=== PATIENT | male | born 1960 | race Caucasian/White ===

== ENCOUNTER 2019-12-25 08:41 | Inpatient (IN) | payer BC, OTHER ==
[2019-12-25 09:18] LABS: Protime INR 1.18
[2019-12-25 09:21] LABS: Absolute Lymphocytes (CBC) 0.7 K/uL (0.7-4.9); Basophils % 0.6 % (0-1.3); Hematocrit 50.1 % (39.6-49.0); Lymphocytes % 9.5 % (15.3-44.8); MPV 8.7 fL (7.6-11.3); RBC Red Blood Cell Count 5.16 M/uL (4.33-5.43)
[2019-12-25] MEDS ORDERED: METOPROLOL TAR 50 MG TAB ONE (09:24)
[2019-12-25] MEDS ORDERED: ENOXAPARIN 100 MG/ML SYR SQ ONE (09:24)
[2019-12-25] MEDS ORDERED: METOPROLOL TARTRATE 5 MG/5 ML INJ IV ONE ×2 (09:24→10:49)
[2019-12-25] MEDS ORDERED: ASPIRIN 81 MG CHEWABLE TABLET ONE (09:24)
[2019-12-25] MEDS ORDERED: FAMOTIDINE 20 MG/2 ML VIAL IV ONE (09:25)
[2019-12-25] MEDS ORDERED: NA CHLORIDE 0.9% 1,000 ML ONE (09:25)
[2019-12-25 09:39] LABS: Albumin 3.7 g/dL (3.4-5.0); Bilirubin Direct 0.3 mg/dL (0-0.2); Bilirubin Total 0.8 mg/dL (0.2-1.0); Potassium 4.2 mmol/L (3.5-5.1); Protein, Total 7.9 g/dL (6.4-8.2); Thyroid Stimulating Hormone 3.4 uIU/mL (0.360-3.740); Troponin (Emerg Dept Use Only) 0.02 ng/mL (0.0-0.045)
--- NOTE | 2019-12-25 09:50 | RAD REPORT ---
EXAM DESCRIPTION: RAD - Chest Single View - 12/25/2019 9:36 am CLINICAL HISTORY: CHEST PAIN Chest pain. COMPARISON: No comparisons FINDINGS: Portable technique limits examination quality. Mild interstitial pulmonary edema suspected. The heart is moderately enlarged in size. No displaced f ractures. IMPRESSION: Mild CHF.
--- NOTE | 2019-12-25 10:15 | ER ---
Nurse's Notes [facility] Name: Forest Krishnan Age: 59 yrs Sex: Male : 1960 Arrival Date: 12/25/2019 Time: 08:47 Bed 19 Private MD: Diagnosis: Morbid (severe) obesity due to excess calories;Atrial fibrillation and flutter-W/ RVR, NEW ONSET;Chest pain, unspecified;Essential (primary) hypertension;Diastolic (congestive) heart failure Presentation: 12/24 09:04 Chief complaint: Patient states: SOB that began 3 weeks ago. Pt reports that he called ss Dr. Paz who recommended a COVID test which he had obtained 1 week ago which was negative. Coronavirus screen: Client denies travel out of the [place] in the last 14 days. shortness of breath. Ebola Screen: Patient denies exposure to infectious person. Patient denies travel to an Ebola-affected area in the 21 days before illness onset. Initial Sepsis Screen: Does the patient meet any 2 criteria? RR > 20 per min. HR > 90 bpm. Does the patient have a suspected source of infection? No. Patient's initial sepsis screen is negative. Risk Assessment: Do you want to hurt yourself or someone else? Patient reports no desire to harm self or others. Onset of symptoms was November 2019. 09:04 Method Of Arrival: Ambulatory 09:04 Acuity: MIYA 2 ss 09:06 Coronavirus screen: Client denies travel out of the [place] in the last 14 days. At this ph time, the client does not indicate any symptoms associated with coronavirus-19. The client reports previous COVID testing was negative. Ebola Screen: No symptoms or risks identified at this time. Initial Sepsis Screen: Does the patient meet any 2 criteria? No. Patient's initial sepsis screen is negative. Does the patient have a suspected source of infection? No. Patient's initial sepsis screen is negative. Risk Assessment: Do you want to hurt yourself or someone else? Patient reports no desire to harm self or others. Onset of symptoms was December 25, 2019. 09:06 Acuity: MIYA 2 ph 09:06 Method Of Arrival: Ambulatory Historical: - Allergies: 09:07 No Known Allergies; ph 09:08 No Known Allergies; ss - Home Meds: 09:08 telmisartan 80 mg oral tab 1 tab once daily [Active]; ss - PMHx: 09:07 Hypertension; ph 09:08 Hypertension; ss - PSHx: 09:08 Hernia repair; Appendectomy; ss - Immunization history:: Adult Immunizations unknown, Adult Immunizations up to date. - Social history:: Smoking status: Patient denies any tobacco usage or history of. Screenin:07 Abuse screen: Denies threats or abuse. Denies injuries from another. Nutritional ph screening: No deficits noted. Tuberculosis screening: No symptoms or risk factors identified. Fall Risk None identified. Assessment: 09:30 General: Appears in no apparent distress. comfortable, obese, well groomed, Behavior is ph calm, cooperative, appropriate for age, Denies fever, feeling ill. Pain: Complains of pain in anterior aspect of left upper chest and mid-sternal area Pain does not radiate. Pain currently is 2 out of 10 on a pain scale. Quality of pain is described as squeezing, Pain began approx 1 month ago Is intermittent. Neuro: Level of Consciousness is awake, alert, obeys commands, Oriented to person, place, time, situation. Cardiovascular: Reports chest pain, shortness of breath, Denies lightheadedness, nausea, palpitations, vomiting, Capillary refill < 3 seconds in bilateral fingers Patient's skin is warm and dry. Rhythm is atrial fibrillation with rapid ventricular response Chest pain quality is squeezing, is located in left anterior chest wall episodes are intermittent. Respiratory: Reports shortness of breath at rest Airway is patent Respiratory effort is even, unlabored, Respiratory pattern is regular, symmetrical, Denies cough. GI: No signs and/or symptoms were reported involving the gastrointestinal system. Derm: Skin is intact, is healthy with good turgor, Skin is pink, warm \\T\\ dry. Musculoskeletal: Circulation, motion, and sensation intact. Range of motion: intact in all extremities. 10:50 Reassessment: Patient appears in no apparent distress at this time. Patient and/or ph family updated on plan of care and expected duration. Pain level reassessed. Patient is alert, oriented x 3, equal unlabored respirations, skin warm/dry/pink. Dr Brothers at bedside to speak w/ pt, pt noted to be diaphoretic, denies chest pain or SOB at this time, states, " I just got a hot flash." Awaiting orders for admission. 11:30 Reassessment: Patient appears in no apparent distress at this time. Patient and/or ph family updated on plan of care and expected duration. Pain level reassessed. Patient is alert, oriented x 3, equal unlabored respirations, skin warm/dry/pink. Vital Signs: 09:04 Pulse 151; Resp 26; Temp 97.0(TE); Pulse Ox 96% on R/A; Weight 154.22 kg; Height 6 ft. ss 0 in. (182.88 cm); Pain 0/10; 09:06 BP 141 / 117; Pulse 165; Resp 18; Pulse Ox 96% on R/A; ph 09:34 BP 128 / 89; Pulse 136; Resp 18; Pulse Ox 96% on R/A; ph 10:58 BP 120 / 92; Pulse 115; Resp 20; Pulse Ox 95% on R/A; ph 11:37 BP 113 / 95; Pulse 109; Resp 20; Pulse Ox 96% on 2 lpm NC; ph 12:05 BP 112 / 94; Pulse 106; Resp 18; Pulse Ox 98% on 2 lpm NC; ph 09:04 Body Mass Index 46.11 (154.22 kg, 182.88 cm) ss ED Course: 08:47 Patient arrived in ED. mr 08:55 Sydnie Falcon, BERNARD is Primary Nurse. ph 09:01 Christopher Frazier MD is Attending Physician. oly 09:07 Triage completed. ph 09:08 Arm band placed on Patient placed in an exam room, on a stretcher, on cnc machine programmer, ph on pulse oximetry. 09:08 Patient has correct armband on for positive identification. Placed in gown. Bed in low ph position. Call light in reach. Side rails up X 1. computer systems engineer on. Pulse ox on. NIBP on. Door closed. Noise minimized. 09:09 Inserted saline lock: 20 gauge in right antecubital area, using aseptic technique. mt Blood collected. 09:09 EKG done, by ED staff, reviewed by Christopher Frazier MD. mt 09:37 XRAY Chest (1 view) In Process Unspecified. EDMS 10:13 Ahmet Santoyo MD is Hospitalizing Provider. oly 11:38 Oxygen administration via nasal cannula \\T\\ 2L/min. ph 12:00 No provider procedures requiring assistance completed. Patient admitted, IV remains in ph place. Administered Medications: Discontinued: NS 0.9% 1000 ml IV at 1 bolus Per protocol; 1000 mL bolus 09:15 Drug: NS 0.9% 1000 ml Route: IV; Rate: 1 bolus; Site: right antecubital; ph 10:01 Follow up: Response: No adverse reaction; IV Status: Order to discontinue infusion ph 09:15 Drug: Lopressor (metoprolol TARTRATE) 50 mg Route: PO; ph 11:36 Follow up: Response: No adverse reaction ph 09:15 Drug: Aspirin Chewable Tablet 324 mg Route: PO; ph 11:36 Follow up: Response: No adverse reaction ph 09:17 Drug: Pepcid 20 mg Route: IVP; Site: right antecubital; ph 11:36 Follow up: Response: No adverse reaction ph 09:18 Drug: Lovenox 1 mg/kg Route: Sub-Q; Site: left lower abdomen; ph 11:36 Follow up: Response: No adverse reaction ph 09:22 Drug: Lopressor 5 mg Route: IVP; Site: right antecubital; ph 10:00 Drug: Lopressor 5 mg Route: IVP; Site: right antecubital; ph 10:50 Drug: Lasix 40 mg Route: IVP; Site: right antecubital; ph 11:36 Follow up: Response: No adverse reaction ph 10:59 Drug: Magnesium Sulfate 1 grams Route: IVPB; Infused Over: 1 hrs; Site: right ph antecubital; 11:00 Drug: Lopressor 5 mg Route: IVP; Site: right antecubital; ph 11:35 Follow up: Response: No adverse reaction; Cardiac rhythm changed ph 11:35 Drug: Digoxin 0.5 mg Route: IVP; Site: right antecubital; ph 11:37 Follow up: Response: No adverse reaction; Cardiac rhythm changed ph Outcome: 10:14 Decision to Hospitalize by Provider. oly 12:35 Admitted to Tele accompanied by tech, via wheelchair, room 204, with chart, Report ph called to Marj WAGNER 12:35 Condition: improved 12:35 Instructed on the need for admit. 12:36 Patient left the ED. eb Signatures: Dispatcher [employer] EDChristopher Servin MD MD cha Rivera, Jennifer Acosta RN RN Sydnie Falcon RN RN Juan, [place] Juliette Vallejo Corrections: (The following items were deleted from the chart) : 09:04 Coronavirus screen: Client denies travel out of the [place] in the last 14 days. ss ss
--- NOTE | 2019-12-25 10:15 | EDPHYS ---
Physician Documentation [facility] Name: Forest Krishnan Age: 59 yrs Sex: Male : 1960 Arrival Date: 12/25/2019 Time: 08:47 Bed 19 Private MD: ED Physician Christopher Frazier HPI: 12/24 10:04 This 59 yrs old Male presents to ER via Ambulatory with complaints of Chest oly Pain, Breathing Difficulty. 10:04 The patient or guardian reports chest pain that is located primarily in the substernal oly area. Onset: 2 day(s) ago. The pain does not radiate. Associated signs and symptoms: Pertinent positives: shortness of breath. Historical: - Allergies: 09:07 No Known Allergies; ph 09:08 No Known Allergies; ss - Home Meds: 09:08 telmisartan 80 mg oral tab 1 tab once daily [Active]; ss - PMHx: 09:07 Hypertension; ph 09:08 Hypertension; ss - PSHx: 09:08 Hernia repair; Appendectomy; ss - Immunization history:: Adult Immunizations unknown, Adult Immunizations up to date. - Social history:: Smoking status: Patient denies any tobacco usage or history of. ROS: 10:07 Constitutional: Negative for fever, chills, and weight loss, Eyes: Negative for injury, oly pain, redness, and discharge, ENT: Negative for injury, pain, and discharge, Neck: Negative for injury, pain, and swelling, Abdomen/GI: Negative for abdominal pain, nausea, vomiting, diarrhea, and constipation, Back: Negative for injury and pain, : Negative for injury, bleeding, discharge, and swelling, Skin: Negative for injury, rash, and discoloration, Neuro: Negative for headache, weakness, numbness, tingling, and seizure, Psych: Negative for depression, anxiety, suicide ideation, homicidal ideation, and hallucinations, Allergy/Immunology: Negative for hives, rash, and allergies, Endocrine: Negative for neck swelling, polydipsia, polyuria, polyphagia, and marked weight changes, Hematologic/Lymphatic: Negative for swollen nodes, abnormal bleeding, and unusual bruising. 10:07 Cardiovascular: Positive for chest pain, edema, orthopnea, palpitations. 10:07 Cardiovascular: Positive for 10:07 Respiratory: Positive for shortness of breath. 10:07 MS/extremity: Positive for swelling, of the right leg and left leg. Exam: 10:08 Constitutional: This is a well developed, well nourished patient who is awake, alert, oly and in no acute distress. Head/Face: Normocephalic, atraumatic. Eyes: Pupils equal round and reactive to light, extra-ocular motions intact. Lids and lashes normal. Conjunctiva and sclera are non-icteric and not injected. Cornea within normal limits. Periorbital areas with no swelling, redness, or edema. ENT: Nares patent. No nasal discharge, no septal abnormalities noted. Tympanic membranes are normal and external auditory canals are clear. Oropharynx with no redness, swelling, or masses, exudates, or evidence of obstruction, uvula midline. Mucous membranes moist. Neck: Trachea midline, no thyromegaly or masses palpated, and no cervical lymphadenopathy. Supple, full range of motion without nuchal rigidity, or vertebral point tenderness. No Meningismus. Chest/axilla: Normal chest wall appearance and motion. Nontender with no deformity. No lesions are appreciated. Respiratory: Lungs have equal breath sounds bilaterally, clear to auscultation and percussion. No rales, rhonchi or wheezes noted. No increased work of breathing, no retractions or nasal flaring. Abdomen/GI: Soft, non-tender, with normal bowel sounds. No distension or tympany. No guarding or rebound. No evidence of tenderness throughout. Back: No spinal tenderness. No costovertebral tenderness. Full range of motion. Male : Normal genitalia with no discharge or lesions. Neuro: Awake and alert, GCS 15, oriented to person, place, time, and situation. Cranial nerves II-XII grossly intact. Motor strength 5/5 in all extremities. Sensory grossly intact. Cerebellar exam normal. Normal gait. Psych: Awake, alert, with orientation to person, place and time. Behavior, mood, and affect are within normal limits. 10:08 Cardiovascular: Rate: tachycardic, Rhythm: irregularly irregular, Pulses: Pulses are 4+ in bilateral radial, brachial, femoral, popliteal, posterior tibial and and dorsalis pedis arteries.. Heart sounds: normal, Edema: 4+ edema to level of left midcalf and right midcalf, JVD: is noted bilaterally, to 2 cm. 10:08 Skin: Appearance: Color: normal in color, Temperature: normal temperature, Moisture: diaphoretic, petechiae, not noted, ecchymosis, not noted, abscess, not appreciated, cellulitis, is not appreciated, induration, is not appreciated, injury, is not appreciated. Vital Signs: 09:04 Pulse 151; Resp 26; Temp 97.0(TE); Pulse Ox 96% on R/A; Weight 154.22 kg; Height 6 ft. ss 0 in. (182.88 cm); Pain 0/10; 09:06 BP 141 / 117; Pulse 165; Resp 18; Pulse Ox 96% on R/A; ph 09:34 BP 128 / 89; Pulse 136; Resp 18; Pulse Ox 96% on R/A; ph 10:58 BP 120 / 92; Pulse 115; Resp 20; Pulse Ox 95% on R/A; ph 11:37 BP 113 / 95; Pulse 109; Resp 20; Pulse Ox 96% on 2 lpm NC; ph 12:05 BP 112 / 94; Pulse 106; Resp 18; Pulse Ox 98% on 2 lpm NC; ph 09:04 Body Mass Index 46.11 (154.22 kg, 182.88 cm) ss MDM: 09:03 Patient medically screened. oly 10:10 Antibiotic administration: Not indicated. Differential diagnosis: Anemia Anxiety oly Reaction CHF exacerbation, acute myocardial infarction, anxiety, congestive heart failure arrythmia, hiatal hernia, pancreatitis, pneumonia, pulmonary edema, Pulmonary Embolism. HEART Score: History: Moderately Suspicious (1), ECG: Non specific repolarization disturbance / LBTB / PM (1), Age: > 45 and < 65 years (1), Risk Factors: > or = 3 Risk factors for atherosclerotic disease (2), [Hypercholesterolemia] [Hypertension] [+ Family HX] [Obesity] Troponin: < or = 1 x Normal Limit (0). The patient was given aspirin in the Emergency Department. The patient's deep vein thrombosis risk score was calculated as follows: the patients entire leg is swollen (1.0 Pts) the affected calf is swollen more than 3 cm when compared to the asymptomatic extremity (1.0 Pts) Total Score: 1 to 2 points. This patient was found to be at moderate risk for a deep vein thrombosis by using the Well's assessment criteria Heart Rate >100 BPM (1.5 Pts) Total Score: 0-2 Pts- Low Risk. The patient's pulmonary embolism risk score was calculated as follows: the patients heart rate is greater than 100 beats per minute (1.5 Pts) Total Score: 0-2 points. This patient was found to be at low risk for a pulmonary embolism by using the Well's assessment criteria the patients heart rate is greater than 100 beats per minute (1.5 Pts) Total Score: 0-2 points. This patient was found to be at low risk for a pulmonary embolism by using the Well's assessment criteria. MIKAELA Risk Score: 1 - Three or more CAD risk factors, TOTAL SCORE = 1. Immunization status: Influenza vaccine: Not up to date. Data reviewed: vital signs, nurses notes, lab test result(s), EKG, radiologic studies, plain films. Data interpreted: cafeteria monitor: rate is 136 beats/min, rhythm is atrial fibrillation, Pulse oximetry: on room air is 96 %. Test interpretation: by ED physician or midlevel provider: ECG, plain radiologic studies. 12/24 09:02 Order name: Basic Metabolic Panel; Complete Time: 09:56 oly 12/24 09:02 Order name: CBC with Diff; Complete Time: 09:56 [facility] 12/24 09:02 Order name: LFT's; Complete Time: 09:56 [facility] 12/24 09:02 Order name: Magnesium; Complete Time: 09:56 [facility] 12/24 09:02 Order name: NT PRO-BNP; Complete Time: 09:56 [facility] 12/24 09:02 Order name: PT-INR; Complete Time: 09:56 [facility] 12/24 09:02 Order name: Troponin (emerg Dept Use Only); Complete Time: 09:56 [facility] 12/24 09:02 Order name: TSH; Complete Time: 09:56 [facility] 12/24 11:15 Order name: CBC with Automated Diff EDND 12/24 11:15 Order name: CBC with Automated Diff EDND 12/24 11:15 Order name: Comprehensive Metabolic Panel EDND 12/24 11:15 Order name: Comprehensive Metabolic Panel EDND 12/24 11:15 Order name: D-Dimer EDND 12/24 11:15 Order name: D-Dimer EDND 12/24 09:02 Order name: XRAY Chest (1 view); Complete Time: 09:56 [facility] 12/24 10:05 Order name: BIPAP [facility] 12/24 11:15 Order name: Echo with Doppler EDND 12/24 11:15 Order name: Echo with Doppler EDND 12/24 11:15 Order name: Lipid Profile EDMS 12/24 11:15 Order name: Lipid Profile EDMS 12/24 11:15 Order name: Magnesium EDMS 12/24 11:15 Order name: Magnesium EDMS 12/24 11:15 Order name: NT PRO-BNP EDND 12/24 11:15 Order name: NT PRO-BNP EDMS 12/24 11:15 Order name: Phosphorus EDMS 12/24 11:15 Order name: Phosphorus EDMS 12/24 11:15 Order name: Protime (+INR) EDND 12/24 11:15 Order name: Protime (+INR) EDMS 12/24 11:15 Order name: PTT, Activated Partial Thromb EDMS 12/24 11:15 Order name: PTT, Activated Partial Thromb EDMS 12/24 09:02 Order name: EKG; Complete Time: 09:03 [facility] 12/24 09:02 Order name: Cardiac monitoring; Complete Time: 09:08 oly 12/24 09:02 Order name: EKG - Nurse/Tech; Complete Time: 09:09 oly 12/24 09:02 Order name: IV Saline Lock; Complete Time: 09:09 oly 12/24 09:02 Order name: Labs collected and sent; Complete Time: 09: oly 12/24 09:02 Order name: O2 Per Protocol; Complete Time: 09:09 oly 12/24 09:02 Order name: O2 Sat Monitoring; Complete Time: 09:09 [facility] 12/24 11:15 Order name: CONS Physician Consult [facility] 12/24 11:15 Order name: Heart Healthy EDND Administered Medications: Discontinued: NS 0.9% 1000 ml IV at 1 bolus Per protocol; 1000 mL bolus 09:15 Drug: NS 0.9% 1000 ml Route: IV; Rate: 1 bolus; Site: right antecubital; ph 10:01 Follow up: Response: No adverse reaction; IV Status: Order to discontinue infusion ph 09:15 Drug: Lopressor (metoprolol TARTRATE) 50 mg Route: PO; ph 11:36 Follow up: Response: No adverse reaction ph 09:15 Drug: Aspirin Chewable Tablet 324 mg Route: PO; ph 11:36 Follow up: Response: No adverse reaction ph 09:17 Drug: Pepcid 20 mg Route: IVP; Site: right antecubital; ph 11:36 Follow up: Response: No adverse reaction ph 09:18 Drug: Lovenox 1 mg/kg Route: Sub-Q; Site: left lower abdomen; ph 11:36 Follow up: Response: No adverse reaction ph 09:22 Drug: Lopressor 5 mg Route: IVP; Site: right antecubital; ph 10:00 Drug: Lopressor 5 mg Route: IVP; Site: right antecubital; ph 10:50 Drug: Lasix 40 mg Route: IVP; Site: right antecubital; ph 11:36 Follow up: Response: No adverse reaction ph 10:59 Drug: Magnesium Sulfate 1 grams Route: IVPB; Infused Over: 1 hrs; Site: right ph antecubital; 11:00 Drug: Lopressor 5 mg Route: IVP; Site: right antecubital; ph 11:35 Follow up: Response: No adverse reaction; Cardiac rhythm changed ph 11:35 Drug: Digoxin 0.5 mg Route: IVP; Site: right antecubital; ph 11:37 Follow up: Response: No adverse reaction; Cardiac rhythm changed ph Disposition: 12/25/19 10:14 Hospitalization ordered by Ahmet Santoyo for Inpatient Admission. Preliminary diagnosis are Morbid (severe) obesity due to excess calories, Atrial fibrillation and flutter - W/ RVR, NEW ONSET, Chest pain, unspecified, Essential (primary) hypertension, Diastolic (congestive) heart failure. - Bed requested for Telemetry/MedSurg (Inpatient). - Status is Inpatient Admission. eb - Condition is Fair. - Problem is new. - Symptoms have improved. Signatures: Dispatcher [employer] EDND Queenie Washington RN RN dw Anderson, Corey, MD MD cha Smirch, Shelby, RN RN Sydnie Falcon RN RN Juliette Ruelas Corrections: (The following items were deleted from the chart) 10:17 10:14 Hospitalization Ordered by Ahmet Santoyo MD for Inpatient Admission. Preliminary oly diagnosis is Morbid (severe) obesity due to excess calories; Atrial fibrillation and flutter - W/ RVR; Chest pain, unspecified; Essential (primary) hypertension; Diastolic (congestive) heart failure. Bed requested for Telemetry/MedSurg (Inpatient). Status is Inpatient Admission. Condition is Fair. Problem is new. Symptoms have improved. oly 12:01 10:17 12/25/2019 10:14 Hospitalization Ordered by Ahmet Santoyo MD for Inpatient dw Admission. Preliminary diagnosis is Morbid (severe) obesity due to excess calories; Atrial fibrillation and flutter - W/ RVR, NEW ONSET; Chest pain, unspecified; Essential (primary) hypertension; Diastolic (congestive) heart failure. Bed requested for Telemetry/MedSurg (Inpatient). Status is Inpatient Admission. Condition is Fair. Problem is new. Symptoms have improved. oly 12:36 12:01 12/25/2019 10:14 Hospitalization Ordered by Ahmet Santoyo MD for Inpatient eb Admission. Preliminary diagnosis is Morbid (severe) obesity due to excess calories; Atrial fibrillation and flutter - W/ RVR, NEW ONSET; Chest pain, unspecified; Essential (primary) hypertension; Diastolic (congestive) heart failure. Bed requested for Telemetry/MedSurg (Inpatient). Status is Inpatient Admission. Condition is Fair. Problem is new. Symptoms have improved. dw
[2019-12-25] MEDS ORDERED: FUROSEMIDE 40 MG/4 ML VIAL ONE (10:48)
[2019-12-25] MEDS ORDERED: DIGOXIN 0.25 MG/ML AMP ONE (10:48)
[2019-12-25] MEDS ORDERED: MAGNESIUM SULFATE 1 gm IVPB 1 GM/100 ML BAG IV ONE (10:48)
[2019-12-25] MEDS ORDERED: ENOXAPARIN 60 MG/0.6 ML SQ ONE (10:49)
[2019-12-25] MEDS ORDERED: DIGOXIN 0.25 MG/ML AMP IV STA (11:10)
[2019-12-25] MEDS ORDERED: ONDANSETRON 4 MG/2 ML VIAL IV PRN (11:10)
[2019-12-25] MEDS: APIXABAN 5 MG TABLET PO SCH ×2 (13:03→20:04)
[2019-12-25] MEDS: FUROSEMIDE 40 MG/4 ML VIAL IV SCH (16:53)
[2019-12-25] MEDS ORDERED: TEMAZEPAM 15 MG CAP PO PRN (17:10)
[2019-12-25] MEDS ORDERED: METOPROLOL TAR 50 MG TAB PO SCH (21:00)
[2019-12-26] MEDS: FUROSEMIDE 40 MG/4 ML VIAL IV SCH ×4 (00:17→20:57)
[2019-12-26] MEDS: SOTALOL HCL 80 MG TAB PO SCH ×3 (05:47→18:25)
[2019-12-26 05:51] LABS: Absolute Lymphocytes (CBC) 0.8 K/uL (0.7-4.9); Basophils % 1.1 % (0-1.3); Hematocrit 48.1 % (39.6-49.0); Lymphocytes % 12.2 % (15.3-44.8); RBC Red Blood Cell Count 4.92 M/uL (4.33-5.43)
[2019-12-26 06:03] LABS: Albumin 3.5 g/dL (3.4-5.0); Bilirubin Total 0.8 mg/dL (0.2-1.0); Phosphorus 4.2 mg/dL (2.5-4.9); Potassium 4.4 mmol/L (3.5-5.1); Protein, Total 7.5 g/dL (6.4-8.2)
[2019-12-26 06:08] LABS: Protime INR 1.47
[2019-12-26 06:15] LABS: Thyroid Stimulating Hormone 4.31 uIU/mL (0.360-3.740)
[2019-12-26] MEDS: APIXABAN 5 MG TABLET PO SCH ×2 (08:59→20:55)
--- NOTE | 2019-12-26 09:38 | P.HP ---
Certification for Inpatient Patient admitted to: Inpatient With expected LOS: >2 Midnights Patient will require the following post-hospital care: None Practitioner: I am a practitioner with admitting privileges, knowledge of patient current condition, hospital course, and medical plan of care. Services: Services provided to patient in accordance with Admission requirements found in Title 42 Section 412.3 of the Code of Federal Regulations Patient History Date of Service: 12/25/19 Reason for admission: ACUTE CHF EXACERBATION History of Present Illness: PATIENT IS A 59-YEAR-OLD GENTLEMAN WHO CAME TO THE HOSPITAL WITH SHORTNESS OF BREATH. PATIENT HAS BEEN SEEING HIS PRIMARY CARE PROVIDER DR. SANTOS FOR THE LAST FEW MONTHS FOR THE SHORTNESS OF BREATH. INITIALLY PATIENT FELT HE MAY HAVE COVID-19, BUT HE TESTED A WEEK AGO AND WAS NEGATIVE. HE WAS SCHEDULED TO SEE DR. SIMPSON FOR OUTPATIENT FOLLOW-UP. HOWEVER, HIS SHORTNESS OF BREATH GOT REALLY BAD LAST NIGHT. HE HAD ORTHOPNEA AND PND. HE HAS BEEN HAVING DYSPNEA ON EXERTION WELL. HE CAME TO THE EMERGENCY ROOM AND HE WAS FOUND HAVE AN ELEVATED BNP AND HE HAD PULMONARY EDEMA ON THE CHEST X-RAY. HIS FINDINGS ARE CONSISTENT WITH CONGESTIVE HEART FAILURE. HE WAS ALSO IN ATRIAL FIBRILLATION WITH RAPID VENTRICULAR RESPONSE. PATIENT HAS SIGNIFICANT LOWER EXTREMITY EDEMA WELL. HE WILL BE ADMITTED TO THE HOSPITAL FOR FURTHER EVALUATION. Allergies No Known Allergies Allergy (Unverified 12/25/19 12:49) Home Medications: Aspirin [Ecotrin 81 MG] 81 mg PO DAILY 12/25/19 Telmisartan 80 mg PO DAILY 12/25/19 - Past Medical/Surgical History Has patient received pneumonia vaccine in the past: No Diabetic: No -: HTN -: hernia repair -: Appendectomy - Family History Father Family History: Reviewed- Non-Contributory - Social History Smoking Status: Never smoker Alcohol use: No CD- Drugs: Yes Caffeine use: No Place of Residence: Home Review of Systems 10-point ROS is otherwise unremarkable Physical Examination - Vital Signs Temperature: 96.1 F Blood Pressure: 140/70 Pulse: 94 Respirations: 19 Pulse Ox (%): 96 - Physical Exam General: Alert, In no apparent distress, Oriented x3 HEENT: Atraumatic, PERRLA, Mucous membr. moist/pink, EOMI, Sclerae nonicteric Neck: Supple, 2+ carotid pulse no bruit, No LAD, Without JVD or thyroid abnormality Respiratory: Crackles/rales Cardiovascular: Normal S1 S2, Irregular heart rate/rhythm, Systolic murmur Gastrointestinal: Normal bowel sounds, Hypoactive, Soft and benign, Non- distended, No tenderness Musculoskeletal: No clubbing, No tenderness, Swelling Integumentary: Tenderness/swelling Neurological: Normal gait, Normal speech, Normal strength at 5/5 x4 extr, Normal tone, Sensation intact, Cranial nerves 3-12 intact, Normal affect Lymphatics: No axilla or inguinal lymphadenopathy - Studies Laboratory Data (last 24 hrs) 12/25/19 09:07: Sodium 139, Potassium 4.2, BUN 14, Creatinine 1.38 H, Glucose 136 H, Magnesium 2.0, Total Bilirubin 0.8, AST 44 H, ALT 73, Alkaline Phosphatase 106 Assessment & Plan - Problems (Diagnosis) (1) Acute diastolic CHF (congestive heart failure) Current Visit: Yes Status: Acute (2) Atrial fibrillation with rapid ventricular response Current Visit: Yes Status: Acute (3) Diabetes type 2, uncontrolled Current Visit: Yes Status: Acute (4) Hypertension Current Visit: Yes Status: Acute (5) [place] (dyspnea on exertion) Current Visit: Yes Status: Acute (6) PND (paroxysmal nocturnal dyspnea) Current Visit: Yes Status: Acute (7) Orthopnea Current Visit: Yes Status: Acute (8) Morbid obesity with body mass index of 60.0-69.9 in adult Current Visit: Yes Status: Acute (9) Obesity hypoventilation syndrome Current Visit: Yes Status: Acute - Plan 1. Echocardiogram 2. We will start patient on an JUAN DIEGO inhibitor or an ARB 3. We will start patient on a Beta lelia in 48 hr 4. Cardiology consultation 5. Aggressive diuresis 6. Strict I's and O's 7. Repeat CXR 8. Daily weights 9. Pulmonary consultation for obesity hypoventilation syndrome/obstructive sleep apnea 10. Education regarding diet and treatment of congestive heart failure Discharge Plan: Home Plan to discharge in: Greater than 2 days - Advance Directives Does patient have a Living Will: No Does patient have a Durable POA for Healthcare: No - Code Status/Comfort Care Code Status Assessed: Yes Code Status: Full Code Critical Care: No Time Spent Managing PTS Care (In Minutes): 50
--- NOTE | 2019-12-26 13:26 | P.PN ---
Subjective Date of Service: 12/26/19 Subjective: No new changes, No C/O voiced, Improving Review of Systems 10-point ROS is otherwise unremarkable Physical Examination - Vital Signs Temperature: 97.0 F Blood Pressure: 119/70 Pulse: 97 Respirations: 18 Pulse Ox (%): 95 - Physical Exam General: Alert, In no apparent distress, Oriented x3 HEENT: Atraumatic, PERRLA, EOMI Neck: Supple, JVD not distended Respiratory: Diminished, Crackles/rales Cardiovascular: Irregular heart rate/rhythm, Systolic murmur Gastrointestinal: Normal bowel sounds, Soft and benign, Non-distended, No tenderness Musculoskeletal: No clubbing, No tenderness, Swelling Integumentary: No rashes Neurological: Normal strength at 5/5 x4 extr, Sensation intact, Cranial nerves 3-12 intact - Studies Medications List Reviewed: Yes Assessment & Plan - Problems (Diagnosis) (1) Acute diastolic CHF (congestive heart failure) Current Visit: Yes Status: Acute (2) Atrial fibrillation with rapid ventricular response Current Visit: Yes Status: Acute (3) Diabetes type 2, uncontrolled Current Visit: Yes Status: Acute (4) Hypertension Current Visit: Yes Status: Acute (5) [place] (dyspnea on exertion) Current Visit: Yes Status: Acute (6) PND (paroxysmal nocturnal dyspnea) Current Visit: Yes Status: Acute (7) Orthopnea Current Visit: Yes Status: Acute (8) Morbid obesity with body mass index of 60.0-69.9 in adult Current Visit: Yes Status: Acute (9) Obesity hypoventilation syndrome Current Visit: Yes Status: Acute (10) Coagulopathy Current Visit: Yes Status: Acute - Plan 1. Echocardiogram is pending 2. Continue sotalol per Cardiology recommendations along with Eliquis 3. Continue diuresing 4. Cardiology consultation and Pulmonary consultation pending 5. Venous Doppler bilateral lower extremities 6. Strict I's and O's 7. Repeat CXR 8. Daily weights 9. Pulmonary consultation for obesity hypoventilation syndrome/obstructive sleep apnea 10. Education regarding diet and treatment of congestive heart failure Discharge Plan: Home Plan to discharge in: Greater than 2 days - Advance Directives Does patient have a Living Will: No Does patient have a Durable POA for Healthcare: No - Code Status/Comfort Care Code Status: Full Code Critical Care: No Time Spent Managing PTS Care (In Minutes): 35
[2019-12-26] MEDS ORDERED: ZOLPIDEM TARTRATE 10 MG TABLET PO PRN (17:24)
--- NOTE | 2019-12-26 21:01 | RAD REPORT ---
EXAM DESCRIPTION: USExtrem Venous W Compress Bil12/26/2019 8:33 pm CLINICAL HISTORY: Bilateral leg swelling COMPARISON: none FINDINGS: The common femoral, superficial femoral, popliteal and posterior tibial veins bilaterally are compressible and demonstrate augmentation. Doppler demonstrates good flow. IMPRESSION: No evidence of deep venous thrombosis involving either lower extremity.
--- NOTE | 2019-12-26 22:28 | CON ---
Date of Consultation: 12/26/2019 Reason For Consultation: Atrial fibrillation. History Of Present Illness: Mr. Krishnan is a 59-year-old obese male with history of sleep apnea, hyper tension. He weighs 403 pounds. He came in with shortness of breath and palpitation and chest pain a nd was found to be in atrial fibrillation, rapid ventricular response. He had been given IV metoprol ol, IV digoxin, p.o. metoprolol, and Eliquis. He remained in atrial fibrillation this morning at a r ate of 110 and is still continuing to feel slightly short of breath. His chest x-ray showed mild CHF . Past Medical History: As stated above. Allergies: NONE. Review of Systems: Negative. Social History: Negative. Family History: Noncontributory. Medications: At home include: 1.Aspirin. 2.Telmisartan. Physical Examination: General: He weighs 403 pounds. He was in atrial fibrillation at a rate of 110, afebrile. HEENT: Negative. Neck: Supple with no bruit. Chest: Clear. Cardiac: Revealed atrial fibrillation. Abdomen: Obese. Extremities: Revealed no clubbing, cyanosis, or edema. Diagnostic Data: EKG showed atrial fibrillation. Chest x-ray showed mild CHF. Creatinine is 1.38. BNP is 1527. Troponin is negative. Impression And Plan: New-onset atrial fibrillation. Symptoms have been going on for about 2-4 weeks . He is definitely not a candidate at this point for a direct current cardioversion. We will switch him from metoprolol to Betapace, continue his Lovenox. He needs to have an echocardiogram next week . TSH is normal. Hopefully, the Betapace will convert him to sinus rhythm. He should eventually go home on Betapace and an oral anticoagulant, preferably Eliquis and we will see how he does on the Be tapace for now. His other issues include mild CHF and I think some gentle diuresis may be in order. He has some renal insufficiency that needs to be observed. His hypertension is well controlled. Hi s biggest problem really is his obesity that is morbid with sleep apnea that may be causing all his a rrhythmias. I will continue to follow him. NB/MODL Voice ID: [id number] Report ID: [id number]
[2019-12-27 04:40] VITALS: BMI 51.2
[2019-12-27] MEDS: SOTALOL HCL 80 MG TAB PO SCH (05:44)
[2019-12-27] MEDS: FUROSEMIDE 40 MG/4 ML VIAL IV SCH (08:57)
[2019-12-27] MEDS: APIXABAN 5 MG TABLET PO SCH (08:57)
[2019-12-27] MEDS ORDERED: ASPIRIN EC 81 MG TAB PO SCH (09:00)
[2019-12-27] MEDS ORDERED: VALSARTAN 160 MG TAB PO SCH (09:00)
--- NOTE | 2019-12-27 09:51 | P.CNS ---
Date of Consult: 12/27/19 Reason for Consult: Shortness of breath Chief Complaint: ACUTE CHF EXACERBATION History of Present Illness: Patient is 59 years of age with a past medical history of hypertension admitted admitted with 2 week history of shortness of breath orthopnea he does not smoke no prior history of cardiac problems denies any chest pain he is morbidly obese uses breathe right strips at night denies any excessive daytime somnolence history of snoring Allergies No Known Allergies Allergy (Unverified 12/25/19 12:49) Home Medications: Aspirin [Ecotrin 81 MG] 81 mg PO DAILY 12/25/19 Telmisartan 80 mg PO DAILY 12/25/19 - Past Medical/Surgical History Diabetic: No -: HTN -: hernia repair -: Appendectomy - Family History Father Family History: Reviewed- Non-Contributory - Social History Alcohol use: No CD- Drugs: Yes Caffeine use: No Place of Residence: Home Review of Systems 10-point ROS is otherwise unremarkable Respiratory: Shortness of Breath Physical Examination Temp Pulse Resp BP Pulse Ox 97.0 F 69 18 140/80 95 12/27/19 04:00 12/27/19 08:57 12/27/19 04:00 12/27/19 08:57 12/27/19 04:00 General: Alert, In no apparent distress, Oriented x3 Respiratory: Clear to auscultation bilaterally, Diminished Cardiovascular: No edema, Irregular heart rate/rhythm Gastrointestinal: Normal bowel sounds, Soft and benign Musculoskeletal: No clubbing, No swelling Integumentary: No rashes, No breakdown - Problems (1) Sleep apnea Current Visit: Yes Status: Acute Plan: Patient is 59 years of age admitted with atrial fibrillation heart failure shortness of breath orthopnea for the past 2 weeks renal function is impaired CBC normal D-dimer elevated saturation satisfactory he is very high risk for sleep apnea and will need an outpatient sleep study his rate seems to be controlled plan for discharge Qualifiers: Sleep apnea type: unspecified type Qualified Code(s): G47.30 - Sleep apnea, unspecified
--- NOTE | 2019-12-27 09:56 | P.CNS ---
Date of Consult: 12/27/19 Allergies No Known Allergies Allergy (Unverified 12/25/19 12:49) Home Medications: Aspirin [Ecotrin 81 MG] 81 mg PO DAILY 12/25/19 Telmisartan 80 mg PO DAILY 12/25/19 - Past Medical/Surgical History Diabetic: No -: HTN -: hernia repair -: Appendectomy - Family History Father Family History: Reviewed- Non-Contributory - Social History Alcohol use: No CD- Drugs: Yes Caffeine use: No Place of Residence: Home Physical Examination Temp Pulse Resp BP Pulse Ox 97.0 F 69 18 140/80 95 12/27/19 04:00 12/27/19 08:57 12/27/19 04:00 12/27/19 08:57 12/27/19 04:00
[2019-12-27 10:43] LABS: Absolute Lymphocytes (CBC) 0.5 K/uL (0.7-4.9); Basophils % 0.8 % (0-1.3); Hematocrit 48.5 % (39.6-49.0); MPV 8.8 fL (7.6-11.3); RBC Red Blood Cell Count 5.01 M/uL (4.33-5.43)
[2019-12-27 10:57] LABS: Potassium 4.2 mmol/L (3.5-5.1)
[2019-12-27 11:12] VITALS: O2SAT 95
--- NOTE | 2019-12-27 11:13 | RAD REPORT ---
EXAM DESCRIPTION: [facility] Single View12/27/2019 10:58 am CLINICAL HISTORY: Chest pain COMPARISON: December 25, 2019 FINDINGS: The lungs appear clear of acute infiltrate. The heart is moderately enlarged IMPRESSION: No acute abnormalities displayed
--- NOTE | 2019-12-27 11:16 | EKG ---
Test Date: 2019-12-25 Test Time: 08:58:26 Auto Repair Technician: JEFFERSON MEASUREMENT RESULTS: Intervals: Rate: 151 FL: QRSD: 84 QT: 284 QTc: 450 [place]: P: FL: QRS: 263 T: 55 INTERPRETIVE STATEMENTS: Atrial fibrillation with rapid ventricular response with premature ventricular or aberrantly conducted complexes Right superior axis deviation Low voltage QRS Cannot rule out Anteroseptal infarct, age undetermined Abnormal ECG No previous ECG available for comparison Electronically Signed On 12-27-19 11:13:50 CDT by Marino García
--- NOTE | 2019-12-27 14:12 | P.DS ---
Discharge Date: 12/27/19 Disposition: ROUTINE DISCHARGE Discharge Condition: GOOD Reason for Admission: ACUTE CHF EXACERBATION Consultations: Cardiology Pulmonary - Problems (1) Acute diastolic CHF (congestive heart failure) Status: Acute (2) Atrial fibrillation with rapid ventricular response Status: Acute (3) Diabetes type 2, uncontrolled Status: Acute (4) Hypertension Status: Acute (5) [place] (dyspnea on exertion) Status: Acute (6) PND (paroxysmal nocturnal dyspnea) Status: Acute (7) Orthopnea Status: Acute (8) Morbid obesity with body mass index of 60.0-69.9 in adult Status: Acute (9) Obesity hypoventilation syndrome Status: Acute (10) Coagulopathy Status: Acute Brief History of Present Illness: PATIENT IS A 59-YEAR-OLD GENTLEMAN WHO CAME TO THE HOSPITAL WITH SHORTNESS OF BREATH. PATIENT HAS BEEN SEEING HIS PRIMARY CARE PROVIDER DR. SANTOS FOR THE LAST FEW MONTHS FOR THE SHORTNESS OF BREATH. INITIALLY PATIENT FELT HE MAY HAVE COVID-19, BUT HE TESTED A WEEK AGO AND WAS NEGATIVE. HE WAS SCHEDULED TO SEE DR. GARCÍA FOR OUTPATIENT FOLLOW-UP. HOWEVER, HIS SHORTNESS OF BREATH GOT REALLY BAD LAST NIGHT. HE HAD ORTHOPNEA AND PND. HE HAS BEEN HAVING DYSPNEA ON EXERTION WELL. HE CAME TO THE EMERGENCY ROOM AND HE WAS FOUND HAVE AN ELEVATED BNP AND HE HAD PULMONARY EDEMA ON THE CHEST X-RAY. HIS FINDINGS ARE CONSISTENT WITH CONGESTIVE HEART FAILURE. HE WAS ALSO IN ATRIAL FIBRILLATION WITH RAPID VENTRICULAR RESPONSE. PATIENT HAS SIGNIFICANT LOWER EXTREMITY EDEMA WELL. HE WILL BE ADMITTED TO THE HOSPITAL FOR FURTHER EVALUATION. Hospital Course: Patient has done well after diuresing. Patient feels much better. He is clinically breathing much better. Edema of the lower extremity has improved. Patient's ejection fraction was 33% on the echocardiogram. Patient's heart rate is controlled with sotalol and patient is on Eliquis for anti coagulation. At this time, patient is stable for discharge with outpatient follow-up. Cardiology was cm later this week and they may do further testing. He may need cardioversion for the atrial fibrillation and then repeat echocardiogram. Continue close monitoring at this time as an outpatient. Vital Signs/Physical Exam: Temp Pulse Resp BP Pulse Ox 97.6 F 69 19 140/80 94 12/27/19 08:00 12/27/19 08:57 12/27/19 08:00 12/27/19 08:57 12/27/19 08:00 General: Alert, In no apparent distress, Oriented x3 Laboratory Data at Discharge: WBC 5.4 K/uL (4.3-10.9) 12/27/19 10:24 Hgb 16.0 g/dL (13.6-17.9) 12/27/19 10:24 Hct 48.5 % (39.6-49.0) 12/27/19 10:24 Plt Count 216 K/uL (152-406) 12/27/19 10:24 PT 17.2 SECONDS (9.5-12.5) H 12/26/19 05:24 INR 1.47 12/26/19 05:24 APTT 38.6 SECONDS (24.3-36.9) H 12/26/19 05:24 Sodium 141 mmol/L (136-145) 12/27/19 10:24 Potassium 4.2 mmol/L (3.5-5.1) 12/27/19 10:24 BUN 21 mg/dL (7-18) H 12/27/19 10:24 Creatinine 1.47 mg/dL (0.55-1.3) H 12/27/19 10:24 Glucose 107 mg/dL (74-106) H 12/27/19 10:24 Phosphorus 4.2 mg/dL (2.5-4.9) 12/26/19 05:24 Magnesium 2.0 mg/dL (1.8-2.4) 12/26/19 05:24 Total Bilirubin 0.8 mg/dL (0.2-1.0) 12/26/19 05:24 AST 30 U/L (15-37) 12/26/19 05:24 ALT 60 U/L (12-78) 12/26/19 05:24 Alkaline Phosphatase 99 U/L (45-117) 12/26/19 05:24 Triglycerides 162 mg/dL (<150) H 12/26/19 05:24 Cholesterol 173 mg/dL (<200) 12/26/19 05:24 HDL Cholesterol 31 mg/dL (40-60) L 12/26/19 05:24 Cholesterol/HDL Ratio 5.58 12/26/19 05:24 Home Medications: Aspirin [Ecotrin 81 MG] 81 mg PO DAILY 12/25/19 Telmisartan 80 mg PO DAILY 12/25/19 Apixaban [Eliquis] 5 mg PO BID #60 tablet 12/27/19 Furosemide [Lasix] 40 mg PO DAILY #30 tablet 12/27/19 Potassium Chloride [K-Dur] 10 meq PO DAILY #30 tab.er.prt 12/27/19 Sotalol HCl [Betapace*] 80 mg PO BID 6AM 6PM #60 tab 12/27/19 New Medications: Sotalol HCl [Betapace*] 80 mg PO BID 6AM 6PM #60 tab Apixaban [Eliquis] 5 mg PO BID #60 tablet Potassium Chloride [K-Dur] 10 meq PO DAILY #30 tab.er.prt Furosemide [Lasix] 40 mg PO DAILY #30 tablet Patient Discharge Instructions: OK TO DC IV AND DC HOME. FOLLOW-UP WITH PRIMARY CARE PROVIDER IN 1-2 WEEKS. FOLLOW-UP WITH CARDIOLOGY IN 1-2 WEEKS. FOLLOW-UP WITH PULMONARY IN 1-2 WEEKS TO ARRANGE FOR SLEEP STUDY. FOLLOW-UP WITH NEPHROLOGY TO MONITOR RENAL FUNCTION. RETURN TO THE ER IF SYMPTOMS WORSEN. CALL or TEXT DR. FRANKLIN AT [phone] IF ANY QUESTIONS REGARDING HOSPITAL STAY. PLEASE CALL THE FLOOR AT [phone] IF ANY MEDICATION OR NURSING QUESTIONS. Diet: AHA Activity: Fall precautions Followup: Benja Arceo MD [ACTIVE - CAN ADMIT] - Armando Mcneal MD [ACTIVE - CAN ADMIT] - Marino García MD [ACTIVE - CAN ADMIT] - Time spent managing pt's care (in minutes): 35
[2019-12-27 14:18] VITALS: BP 132/89; TEMP 97.2
--- NOTE | 2019-12-28 09:00 | ECHO ---
HEIGHT: 6 ft 0 in WEIGHT: 378 lb 4.8 oz DATE OF STUDY: 12/25/[address]: Ahmet Santoyo MD 2-DIMENSIONAL: YES M.MODE: YES DOPPLER: YES COLOR FLOW: YES TDS: PORTABLE: DEFINITY: BUBBLE STUDY: DIAGNOSIS: CONGESTIVE HEART FAILURE CARDIAC HISTORY: CATHERIZATION: SURGERY: PROSTHETIC VALVE: PACEMAKER: MEASUREMENTS (cm) DIASTOLIC (NORMALS) SYSTOLIC (NORMALS) IVSd 1.1 (0.6-1.2) LA Diam 4.8 (1.9-4.0) LVEF 33% LVIDd 6.6 (3.5-5.7) LVIDs 5.5 (2.0-3.5) %FS 16% LVPWd 1.1 (0.6-1.2) Ao Diam 4.0 (2.0-3.7) 2 DIMENSIONAL ASSESSMENT: RIGHT ATRIUM: NORMAL LEFT ATRIUM: DILATED RIGHT VENTRICLE: NORMAL LEFT VENTRICLE: DILATED TRICUSPID VALVE: NORMAL MITRAL VALVE: NORMAL PULMONIC VALVE: NORMAL AORTIC VALVE: NORMAL PERICARDIAL EFFUSION: NONE AORTIC ROOT: NORMAL LEFT VENTRICULAR WALL MOTION: SEVERE GLOBAL HYPOKINESIS DOPPLER/COLOR FLOW: MILD TRICUSPID REGURGITATION COMMENTS: ATRIAL FIBRILLATION. SEVERE GLOBAL HYPOKINESIS. EJECTION FRACTION 30-35%. NO THOMBUS. TECHNOLOGIST: MAURICIO BERUMEN
--- NOTE | 2019-12-28 10:36 | PN ---
Date of Progress Note: 12/27/2019 Subjective: Mr. Krishnan is a patient who had came in with atrial fibrillation and shortness of breath. His atrial fibrillation was initially treated with digoxin and metoprolol and he remained in rapid rate. He was switched to Betapace 80 mg 1 p.o. b.i.d. He remains in atrial fibrillation but his rat e is in the 80s and he is feeling better. Echocardiogram, however, showed a severe global hypokinesi s with an ejection fraction about 33%. This may be due to atrial fibrillation, although it is diffic ult to say. Mr. Krishnan's other problem is morbid obesity and hypertension and dyslipidemia. I am com fortable with him going home on Betapace 80 mg b.i.d., Xarelto or Eliquis. I will see him in the off ice in the next day or 2 after he goes home. We need to plan a cardioversion in approximately 3 week s from presentation based on the fact that the atrial fibrillation is of unknown duration, but probab ly at least for a month based on symptoms. He will eventually need a left heart catheterization to d efine his coronary anatomy, mostly because he would be very difficult to do a stress test. We will p lenore a catheterization down the road with a right with right wrist approach by Dr. Li. He should go home on an ARB, Betapace, Lasix and anticoagulants and I will see him in the office in the next d ay or 2. IRENA/CATALINA Voice ID: [id number] Report ID: [id number]
== END 2019-12-27 12:25 | disposition home or self-care (01) | DRG 291 ==
LOC: ER 08:41 → ERHOLD 11:10 → 2ND 12:19
PROVIDERS: ADMIT Hospitalist; ATTEND Hospitalist
DX: I11.0 Hypertensive heart disease with heart failure (principal); I50.31 Acute diastolic (congestive) heart failure; Z68.44 Body mass index [BMI] 60.0-69.9, adult; E66.2 Morbid (severe) obesity with alveolar hypoventilation; D68.9 Coagulation defect, unspecified; I48.91 Unspecified atrial fibrillation; E11.9 Type 2 diabetes mellitus without complications; R06.01 Orthopnea; R06.09 Other forms of dyspnea; Z79.82 Long term (current) use of aspirin; Z79.899 Other long term (current) drug therapy; Z90.49 Acquired absence of other specified parts of digestive tract; Z79.01 Long term (current) use of anticoagulants
CPT/HCPCS: 36415; 71045; 80048; 80053; 80061; 80076; 83036; 83735; 83880; 84100; 84439; 84443; 84484; 85025; 85379; 85610; 85730; 93005; 93306; 93970; 96361; 96372; 96374; 96375; 99285; J1160; J1650; J1940; J3475; J7030